=== PATIENT | female | born 1970 | race Caucasian/White ===

== ENCOUNTER 2020-06-21 08:58 | Outpatient (CLI) | payer OTHER ==
--- NOTE | 2020-06-21 09:41 | RAD ---
EXAM: XR Sacrum and Coccyx STANDARD PROVIDED CLINICAL HISTORY: Pain FINDINGS: There is no evidence for fracture or other acute osseous abnormality. Alignment appears anatomic. Valentina nt spaces appear preserved. Presumed sutures overlie the pelvis. IMPRESSION: No evidence for an acute osseous abnormality or significant arthropathy.
== END 2020-06-21 08:59 | disposition home or self-care (01) ==
LOC: BICRAD 08:58
PROVIDERS: ATTEND Specialist
DX: M54.5 Low back pain (principal)
CPT/HCPCS: 72220

== ENCOUNTER 2020-11-30 10:50 | Outpatient (CLI) | payer BC | END 2020-11-30 10:51 | disposition home or self-care (01) | LOC: BICRAD 10:50 | PROVIDERS: ATTEND Nurse Practitioner Family | DX: M25.532 Pain in left wrist (principal) ==

== ENCOUNTER 2023-02-28 10:32 | Outpatient (CLI) | payer BC | END 2023-02-28 10:33 | disposition home or self-care (01) | LOC: BICMAMMO 10:32 | PROVIDERS: ATTEND Specialist | DX: Z12.31 Encounter for screening mammogram for malignant neoplasm of breast (principal); Z13.820 Encounter for screening for osteoporosis; M85.88 Other specified disorders of bone density and structure, other site | CPT/HCPCS: 77063; 77067; 77080 ==